=== PATIENT | female | born 1980 | race Caucasian/White ===

== ENCOUNTER 2017-06-16 17:49 | Emergency (ER) | payer MEDICAID ==
[2009-12-21 10:38] VITALS: BMI 27.1
[2017-06-16 18:33] LABS: BASOPHILS 0.2 % (0-2); EOSINOPHILS 0.9 % (0-7); HEMATOCRIT 41.2 % (36.0-48.0); HEMOGLOBIN 14.3 g/dL (12-16); IMMATURE GRANULOCYTES 0.1 % (0-5); LYMPHOCYTES 37.1 % (15-50); MCH 31.2 pg (26.0-34.0); MCHC 34.7 g/dL (31.0-37.0); MEAN PLATELET VOLUME 10.4 fL (7.4-10.4); MONOCYTES 7.3 % (2-11); NEUTROPHILS 54.4 % (40-80); PLATELET COUNT 272 10x3/uL (130-400); RBC 4.58 10x6/uL (4.00-5.40); RDW 12.6 % (11.5-14.5); WBC 9.9 10x3/uL (4.8-10.8)
[2017-06-16 18:52] LABS: ALBUMIN 3.7 g/dL (3.4-5.0); ALKALINE PHOSPHATASE 68 U/L (46-116); ALT (SGPT) 18 U/L (10-68); BILIRUBIN - TOTAL 0.23 mg/dL (0.2-1.3); CALC OSMOLALITY 275 mosm/kg (275-300); CALCIUM 8.2 mg/dL (8.5-10.1); CARBON DIOXIDE 25.2 mmol/L (21.0-32.0); CHLORIDE - SERUM 105 mmol/L (98-107); CREATININE - SERUM 0.6 mg/dL (0.6-1.3); GLUCOSE 92 mg/dL (74-106); PROTEIN - SERUM 7.1 g/dL (6.4-8.2); SODIUM 139 mmol/L (136-145); UREA NITROGEN 7 mg/dL (7-18); eGFR NON AFRICAN AMERICAN > 90 mL/min (90-120)
== END 2017-06-16 20:40 | disposition home or self-care (01) ==
LOC: D.ER 17:49
PROVIDERS: Emergency Medicine
DX: R55 Syncope and collapse (principal); F41.9 Anxiety disorder, unspecified; F31.89 Other bipolar disorder; F43.10 Post-traumatic stress disorder, unspecified; F20.9 Schizophrenia, unspecified; R53.83 Other fatigue

== ENCOUNTER 2017-06-23 20:35 | Emergency (ER) | payer MEDICAID ==
[2009-12-21 10:38] VITALS: BMI 27.1
[2017-06-23 20:59] LABS: APPEARANCE HAZY (CLEAR); BILIRUBIN NEGATIVE (NEGATIVE); COLOR DK YELLOW (YELLOW); GLUCOSE NEGATIVE (NEGATIVE); KETONE NEGATIVE (NEGATIVE); LEUKOCYTE ESTERASE 2+ (NEGATIVE); NITRITE NEGATIVE (NEGATIVE); PROTEIN TRACE mg/dL (NEGATIVE); SPECIFIC GRAVITY 1.015 (1.005-1.020); UROBILINOGEN NORMAL (NORMAL)
[2017-06-23 21:04] LABS: BACTERIA MODERATE /hpf (NONE SEEN); RED CELLS - URINE 0-5 /hpf (0-5)
[2017-06-23 22:28] LABS: BASOPHILS 0.1 % (0-2); EOSINOPHILS 0.3 % (0-7); HEMATOCRIT 43.6 % (36.0-48.0); HEMOGLOBIN 15.6 g/dL (12-16); IMMATURE GRANULOCYTES 0.2 % (0-5); LYMPHOCYTES 34.4 % (15-50); MCH 31.8 pg (26.0-34.0); MCHC 35.8 g/dL (31.0-37.0); MCV 88.8 fL (80.0-100.0); MEAN PLATELET VOLUME 10.8 fL (7.4-10.4); MONOCYTES 4.1 % (2-11); NEUTROPHILS 60.9 % (40-80); PLATELET COUNT 252 10x3/uL (130-400); RBC 4.91 10x6/uL (4.00-5.40); RDW 12.4 % (11.5-14.5); WBC 10.4 10x3/uL (4.8-10.8)
[2017-06-23 23:27] LABS: ALBUMIN 4.1 g/dL (3.4-5.0); ALKALINE PHOSPHATASE 72 U/L (46-116); ALT (SGPT) 13 U/L (10-68); CALC OSMOLALITY 279 mosm/kg (275-300); CALCIUM 9.1 mg/dL (8.5-10.1); CARBON DIOXIDE 29.9 mmol/L (21.0-32.0); CHLORIDE - SERUM 102 mmol/L (98-107); CREATININE - SERUM 0.7 mg/dL (0.6-1.3); GLUCOSE 86 mg/dL (74-106); POTASSIUM - SERUM 3.5 mmol/L (3.5-5.1); PROTEIN - SERUM 7.7 g/dL (6.4-8.2); SODIUM 142 mmol/L (136-145); UREA NITROGEN 8 mg/dL (7-18); eGFR NON AFRICAN AMERICAN > 90 mL/min (90-120)
[2017-06-23 23:42] LABS: AMYLASE - SERUM 48 U/L (25-115); CKMB 0.4 U/L (0.0-3.6); CREATINE KINASE 69 UL (21-215); LIPASE 139 U/L (73-393); TROPONIN-I < 0.017 ng/mL (0.000-0.060)
== END 2017-06-24 00:40 | disposition home or self-care (01) ==
LOC: D.ER 20:35
PROVIDERS: Family Medicine
DX: R42 Dizziness and giddiness (principal); R55 Syncope and collapse; R11.10 Vomiting, unspecified; R53.83 Other fatigue

== ENCOUNTER 2017-06-24 17:53 | Emergency (ER) | payer MEDICAID ==
[2009-12-21 10:38] VITALS: BMI 27.1
== END 2017-06-24 19:56 | disposition home or self-care (01) ==
LOC: D.ER 17:53
DX: A59.9 Trichomoniasis, unspecified (principal); N39.0 Urinary tract infection, site not specified; F17.200 Nicotine dependence, unspecified, uncomplicated; R11.0 Nausea; N89.8 Other specified noninflammatory disorders of vagina

== ENCOUNTER → 2017-08-02 10:01 | Outpatient (CLI) | payer MEDICAID | END | disposition home or self-care (01) | LOC: D.CN 10:01 | DX: G40.101 Localization-related (focal) (partial) symptomatic epilepsy and epileptic syndromes with simple partial seizures, not intractable, with status epilepticus (principal) ==

== ENCOUNTER 2018-02-09 17:18 | Emergency (ER) | payer MEDICAID ==
[2009-12-21 10:38] VITALS: BMI 27.1
== END 2018-02-09 20:08 | disposition home or self-care (01) ==
LOC: D.ER 17:18
DX: S46.911A Strain of unspecified muscle, fascia and tendon at shoulder and upper arm level, right arm, initial encounter (principal); X58.XXXA Exposure to other specified factors, initial encounter; Y93.89 Activity, other specified; Y92.019 Unspecified place in single-family (private) house as the place of occurrence of the external cause; F17.200 Nicotine dependence, unspecified, uncomplicated

== ENCOUNTER 2020-04-24 15:03 | Emergency (ER) | payer MEDICAID ==
[2020-04-24 15:06] VITALS: BP 124/72; Ht 170.2 cm
[2020-04-24] MEDS ORDERED: VISTARIL25 MG PO (15:28)
== END 2020-04-24 15:36 | disposition home or self-care (01) ==
LOC: D.ER 15:03
DX: F41.9 Anxiety disorder, unspecified (principal); F43.9 Reaction to severe stress, unspecified; F41.0 Panic disorder [episodic paroxysmal anxiety]

== ENCOUNTER 2020-07-25 12:01 | Emergency (ER) | payer MEDICAID ==
[~2020-07-25] VITALS: Ht 170.2 cm; Wt 59.1 kg
[~2020-07-25 12:01] MED LIST: VISTARIL25 MG PO
[2020-07-25 12:24] VITALS: Ht 170.2 cm; Wt 59.1 kg
[2020-07-25 14:28] VITALS: BP 149/84
== END 2020-07-25 14:28 | disposition home or self-care (01) ==
LOC: D.ER 12:01
DX: M79.672 Pain in left foot (principal); W22.8XXA Striking against or struck by other objects, initial encounter